=== PATIENT | male | born 1935 | race Hispanic/Latino ===

== ENCOUNTER → 2017-12-17 | Outpatient (CLI) | payer OTHER | END | disposition home or self-care (01) | LOC: OIH 10:20 | PROVIDERS: ATTEND Internal Medicine Cardiovascular Disease | DX: G31.9 Degenerative disease of nervous system, unspecified (principal); R27.0 Ataxia, unspecified | CPT/HCPCS: 70450 ==

== ENCOUNTER → 2021-01-27 | Outpatient (CLI) | payer OTHER | END | disposition home or self-care (01) | LOC: SHCH 11:03 | PROVIDERS: ATTEND Internal Medicine Cardiovascular Disease | DX: I08.0 Rheumatic disorders of both mitral and aortic valves (principal); R55 Syncope and collapse | CPT/HCPCS: 71046; 93306; 93356 ==

== ENCOUNTER 2022-11-24 10:52 | Emergency (ER) | payer OTHER ==
[~2022-11-24] VITALS: Ht 172.7 cm; Wt 73.0 kg
[2022-11-24 11:23] LABS: HEMATOCRIT 38.9 % (42-54); MEAN CORPUSCULAR HEMOGLOBIN 32.3 pg (27.0-33.0); MEAN CORPUSCULAR HGB CONC 33.7 g/dL (32.0-36.0); RED BLOOD CELL COUNT(AUTO) 4.05 MIL/uL (4.50-6.20); RED CELL DISTRIBUTION WIDTH 13.5 % (11.0-15.5); WHITE BLOOD COUNT (AUTO) 6.2 K/uL (4.8-10.8)
[2022-11-24 11:26] LABS: APPEARANCE,URINE CLEAR (CLEAR); BILIRUBIN,URINE NEGATIVE (NEGATIVE); COLOR,URINE YELLOW (YELLOW); GLUCOSE, URINE (UA) NEGATIVE (NEGATIVE); KETONES,URINE NEGATIVE (NEGATIVE); LEUKOCYTE ESTERASE ,URINE NEGATIVE Leu/uL (NEGATIVE); NITRATE,URINE NEGATIVE (NEGATIVE); OCCULT BLOOD,URINE NEGATIVE (NEGATIVE); PH,URINE 6.5 (5.0-8.0); PROTEIN,URINE NEGATIVE (NEGATIVE); UROBILINOGEN,URINE 3 mg/dL (0.2-1.0)
[2022-11-24 11:32] LABS: CREATININE 1.2 mg/dL (0.5-1.5); POTASSIUM 4.1 mmol/L (3.5-5.1)
[2022-11-24 11:36] LABS: ALBUMIN 3.3 g/dL (3.5-5.0); TOTAL PROTEIN, SERUM 6.9 g/dL (6.0-8.3)
[2022-11-24 11:39] LABS: BACTERIA,URINE RARE /HPF (None Seen); SQUAMOUS EPITHELIAL CELL,UR RARE /HPF (0-2); WBC,URINE 0-1 /HPF (0-1)
[2022-11-24] MEDS ORDERED: TAMS-1 PO (11:46)
[2022-11-24] MEDS ORDERED: PANT40TA54 PO (11:46)
[2022-11-24] MEDS ORDERED: LOSA50TA64 PO (11:46)
[2022-11-24] MEDS ORDERED: LEVO50CA4 PO (11:46)
[2022-11-24] MEDS ORDERED: PRAV20TA4 PO (11:46)
[2022-11-24] MEDS ORDERED: PIND10TA2 PO (11:46)
[2022-11-24] MEDS ORDERED: MORPHINE 4 MG SYG IVP ONE (13:30)
[2022-11-24] MEDS ORDERED: IOHEXOL 350 MG/ML 100ML INFUS..BTL IV ONE (14:03)
[2022-11-24 17:20] VITALS: BP 139/70
[2022-11-24] MEDS ORDERED: ACET-2079 PO (17:30)
[2022-11-24] MEDS ORDERED: LACT10SO95 PO (17:30)
[2022-11-24] MEDS ORDERED: TETANUS/DIPHTHERIA TOXOID [ADULT] 0.5 ML VIAL IM ONE (17:30)
== END 2022-11-24 17:54 | disposition home or self-care (01) ==
LOC: EDH 10:52
DX: S22.089A Unspecified fracture of T11-T12 vertebra, initial encounter for closed fracture (principal); S00.83XA Contusion of other part of head, initial encounter; K59.00 Constipation, unspecified; E78.00 Pure hypercholesterolemia, unspecified; I10 Essential (primary) hypertension; Z79.899 Other long term (current) drug therapy; W11.XXXA Fall on and from ladder, initial encounter; Y93.89 Activity, other specified; Y92.89 Other specified places as the place of occurrence of the external cause; Y99.8 Other external cause status
CPT/HCPCS: 99285; 70450; 96374; 82550; 84484; 80053; 85027; 81001; 36415; 90714; 71260; 74177; 90471; 93005; J2270; Q9967; 96372

== ENCOUNTER 2023-03-23 06:52 | Day surgery (SDC) | payer OTHER ==
[2023-03-19 09:52] LABS: BASOPHILS # (AUTO) 0.02 K/uL (0.00-0.20); BASOPHILS % (AUTO) 0.3 % (0.0-5.0); EOSINOPHILS # (AUTO) 0.19 K/uL (0.00-0.70); EOSINOPHILS % (AUTO) 2.5 % (0.0-8.0); HEMATOCRIT 38.9 % (42-54); IMMATURE GRANULOCYTE ABSOLUTE 0.05 K/uL (0-1); LYMPHOCYTES # (AUTO) 2.2 K/uL (1.0-4.8); MEAN CORPUSCULAR HEMOGLOBIN 32.4 pg (27.0-33.0); MEAN CORPUSCULAR HGB CONC 32.4 g/dL (32.0-36.0); MONOCYTES # (AUTO) 0.6 K/uL (0.1-1.0); MONOCYTES % (AUTO) 7.5 % (3.0-13.0); NEUTROPHILS # (AUTO) 4.5 K/uL (1.8-7.7); PLATELET COUNT (AUTO) 194 K/uL (130-400); RED BLOOD CELL COUNT(AUTO) 3.89 MIL/uL (4.50-6.20); RED CELL DISTRIBUTION WIDTH 13.2 % (11.0-15.5); WHITE BLOOD COUNT (AUTO) 7.5 K/uL (4.8-10.8)
[2023-03-19 10:10] LABS: CREATININE 1.3 mg/dL (0.5-1.5); POTASSIUM 4.5 mmol/L (3.5-5.1)
[2023-03-19 10:17] VITALS: BP 160/76; PULSE 53; RESP 19
[2023-03-23] VITALS (16 sets, daily range): BP systolic 113–145; BP diastolic 62–75; PULSE 54–60; RESP 12–21
[~2023-03-23] VITALS: Ht 170.2 cm; Wt 71.2 kg
[~2023-03-23 06:52] MED LIST: LEVO50CA4 PO; LOSA50TA64 PO; MICO14CR6 TP; PANT40TA54 PO; PIND5 PO; PRAV20TA4 PO; PRED20TA3 PO; TAMS-1 PO; TYLENOL PO; VITAMIN B12 PO
[2023-03-23] MEDS ORDERED: LACTATED RINGERS 1000ML 1,000 ML IV ONE (07:22)
[2023-03-23] MEDS ORDERED: ROCURONIUM 10MG/1ML SYR 10 MG/ML ML ONE ×2 (07:30→09:08)
[2023-03-23] MEDS ORDERED: MIDAZOLAM HCL 1 MG/ML 2ML VIAL ONE (07:30)
[2023-03-23] MEDS ORDERED: LIDOCAINE PF 100MG/5ML (2%) SYRINGE 5ML ONE (07:30)
[2023-03-23] MEDS ORDERED: PROPOFOL 10 MG/ML 20ML VIAL IV ONE (07:30)
[2023-03-23] MEDS ORDERED: FENTANYL CITRATE PF 50 MCG/1 ML 2ML VIAL ONE (07:31)
[2023-03-23] MEDS ORDERED: ONDANSETRON 4MG INJ ONE (07:35)
[2023-03-23] MEDS ORDERED: ROPIVACAINE 0.5% 5MG/ML 30ML IJ ONE (07:35)
[2023-03-23] MEDS ORDERED: NEOSTIGMINE 5MG/5ML SYR IV ONE (07:35)
[2023-03-23] MEDS ORDERED: GLYCOPYRROLATE 1 MG/5 ML SYRINGE ONE (07:35)
[2023-03-23] MEDS ORDERED: BUPIVACAINE/PF 0.5% 30ML VIAL ONE (07:37)
[2023-03-23] MEDS ORDERED: PHENYLEPHRINE HCL 10 MG/ML 1ML VIAL IV ONE (07:37)
[2023-03-23] MEDS ORDERED: INDOCYANINE GREEN 25 MG VIAL IJ ONE (07:46)
[2023-03-23] MEDS ORDERED: CEFAZOLIN SODIUM 2 GM VIAL ONE (08:14)
[2023-03-23] MEDS ORDERED: EPHEDRINE SULFATE 50 MG/ML AMPULE ONE (08:41)
== END 2023-03-23 12:15 | disposition home or self-care (01) ==
LOC: DAH 06:52
PROVIDERS: ATTEND Student in an Organized Health Care Education/Training Program
DX: K40.90 Unilateral inguinal hernia, without obstruction or gangrene, not specified as recurrent (principal); Z20.822 Contact with and (suspected) exposure to COVID-19; D17.6 Benign lipomatous neoplasm of spermatic cord; I11.0 Hypertensive heart disease with heart failure; I50.32 Chronic diastolic (congestive) heart failure; E11.9 Type 2 diabetes mellitus without complications; J44.9 Chronic obstructive pulmonary disease, unspecified; I25.2 Old myocardial infarction; E78.5 Hyperlipidemia, unspecified; Z79.899 Other long term (current) drug therapy; Z98.890 Other specified postprocedural states
CPT/HCPCS: 93005; 80048; 85025; 36415; 49650; 64486; A6260; A4663; J7030; A4344; J7120; J3010; J3490 ×3; J2710; J2001; J2250; J2704; J2405; J2795; J2371; J0690; C1769; C1781; A4930; A4215; A4223; A4222; A4221; G0168

== ENCOUNTER 2023-05-22 08:19 | Emergency (ER) | payer OTHER ==
[~2023-05-22] VITALS: Ht 172.7 cm; Wt 69.9 kg
[~2023-05-22 08:19] MED LIST changes: -MICO14CR6 TP
[2023-05-22] MEDS ORDERED: ONDANSETRON 4MG INJ IVP ONE (08:30)
[2023-05-22] MEDS ORDERED: MORPHINE 2 MG SYG IVP ONE (08:30)
[2023-05-22] MEDS ORDERED: LACTATED RINGERS 1000ML 1,000 ML IV ONE ×2 (08:30→10:00)
[2023-05-22] MEDS ORDERED: FAMOTIDINE 20MG VIAL IV ONE (08:30)
[2023-05-22 08:48] LABS: BASOPHILS # (AUTO) 0.03 K/uL (0.00-0.20); BASOPHILS % (AUTO) 0.5 % (0.0-5.0); EOSINOPHILS # (AUTO) 0.03 K/uL (0.00-0.70); EOSINOPHILS % (AUTO) 0.5 % (0.0-8.0); HEMATOCRIT 40.6 % (42-54); IMMATURE GRANULOCYTE ABSOLUTE 0.03 K/uL (0-1); LYMPHOCYTES # (AUTO) 1.3 K/uL (1.0-4.8); LYMPHOCYTES % (AUTO) 21.2 % (21.0-51.0); MEAN CORPUSCULAR HEMOGLOBIN 32.5 pg (27.0-33.0); MEAN CORPUSCULAR HGB CONC 33.7 g/dL (32.0-36.0); MEAN CORPUSCULAR VOLUME 96.4 fL (79-99); MONOCYTES # (AUTO) 0.5 K/uL (0.1-1.0); MONOCYTES % (AUTO) 7.7 % (3.0-13.0); NEUTROPHILS # (AUTO) 4.2 K/uL (1.8-7.7); NEUTROPHILS % (AUTO) 69.6 % (40.0-77.0); PLATELET COUNT (AUTO) 147 K/uL (130-400); RED BLOOD CELL COUNT(AUTO) 4.21 MIL/uL (4.50-6.20); RED CELL DISTRIBUTION WIDTH 14.4 % (11.0-15.5)
[2023-05-22 09:45] LABS: SARS-CoV-2, RNA, NAAT NEGATIVE SARS CoV-2 (NEGATIVE)
[2023-05-22 09:47] LABS: ALBUMIN 3.1 g/dL (3.5-5.0); BILIRUBIN,TOTAL 1.1 mg/dL (0.2-1.0); CREATININE 1.4 mg/dL (0.5-1.5); POTASSIUM 4.3 mmol/L (3.5-5.1); TOTAL PROTEIN, SERUM 6.6 g/dL (6.0-8.3)
[2023-05-22 09:50] LABS: INFLUENZA TYPE A Negative For Type A (NEGATIVE); INFLUENZA TYPE B Negative For Type B (NEGATIVE)
[2023-05-22] MEDS ORDERED: ONDA4TAB10 PO (11:53)
[2023-05-22 12:10] VITALS: BP 108/54; PULSE 76; RESP 16; O2SAT 96
== END 2023-05-22 12:26 | disposition home or self-care (01) ==
LOC: EDH 08:19
DX: A08.4 Viral intestinal infection, unspecified (principal); E86.0 Dehydration; I10 Essential (primary) hypertension; E78.00 Pure hypercholesterolemia, unspecified; Z20.822 Contact with and (suspected) exposure to COVID-19; Z79.899 Other long term (current) drug therapy; Z98.890 Other specified postprocedural states
CPT/HCPCS: 99285; 96374; 96361; 96375; 87635; 82550; 84484; 80053; 83690; 85025; 87040 ×2; 87804 ×2; 83605 ×2; 36415; 74021; 93005; C9803; J7120; J3490; J2270; J2405

== ENCOUNTER 2023-05-24 18:33 | Inpatient (IN) | payer OTHER ==
[~2023-05-24] VITALS: Ht 172.7 cm; Wt 69.5 kg
[~2023-05-24 18:33] MED LIST changes: +0.9%NACL 50ML IV SCH; +ONDA4TAB10 PO
[2023-05-24] MEDS ORDERED: 0.9%NACL 1000ML 1,000 ML IV ONE ×2 (19:30)
[2023-05-24] MEDS ORDERED: ACETAMINOPHEN 500 MG TABLET PO ONE (20:00)
[2023-05-24] MEDS ORDERED: 0.9%NACL 1000ML 2,052 ML IV ONE (20:00)
[2023-05-24 20:01] LABS: BASOPHILS # (AUTO) 0.09 K/uL (0.00-0.20); BASOPHILS % (AUTO) 1.8 % (0.0-5.0); EOSINOPHILS # (AUTO) 0.03 K/uL (0.00-0.70); EOSINOPHILS % (AUTO) 0.6 % (0.0-8.0); HEMATOCRIT 35.1 % (42-54); IMMATURE GRANULOCYTE ABSOLUTE 0.09 K/uL (0-1); LYMPHOCYTES # (AUTO) 0.8 K/uL (1.0-4.8); LYMPHOCYTES % (AUTO) 15.7 % (21.0-51.0); MEAN CORPUSCULAR HEMOGLOBIN 32.5 pg (27.0-33.0); MEAN CORPUSCULAR HGB CONC 34.2 g/dL (32.0-36.0); MEAN CORPUSCULAR VOLUME 95.1 fL (79-99); MONOCYTES # (AUTO) 0.7 K/uL (0.1-1.0); MONOCYTES % (AUTO) 13.8 % (3.0-13.0); NEUTROPHILS # (AUTO) 3.3 K/uL (1.8-7.7); NEUTROPHILS % (AUTO) 66.3 % (40.0-77.0); PLATELET COUNT (AUTO) 166 K/uL (130-400); RED BLOOD CELL COUNT(AUTO) 3.69 MIL/uL (4.50-6.20); RED CELL DISTRIBUTION WIDTH 14.6 % (11.0-15.5); WHITE BLOOD COUNT (AUTO) 4.9 K/uL (4.8-10.8)
[2023-05-24 20:03] VITALS: TEMP 100.4
[2023-05-24 20:22] LABS: APPEARANCE,URINE CLOUDY (CLEAR); BILIRUBIN,URINE NEGATIVE (NEGATIVE); COLOR,URINE DARK-YELLOW (YELLOW); GLUCOSE, URINE (UA) NEGATIVE (NEGATIVE); KETONES,URINE NEGATIVE (NEGATIVE); LEUKOCYTE ESTERASE ,URINE 500 Leu/uL (NEGATIVE); NITRATE,URINE NEGATIVE (NEGATIVE); PH,URINE 5.5 (5.0-8.0); PROTEIN,URINE 50 mg/dL (NEGATIVE); UROBILINOGEN,URINE 0.2 mg/dL (0.2-1.0)
[2023-05-24 20:23] LABS: ADD UA MICROSCOPIC YES
[2023-05-24 20:26] LABS: BACTERIA,URINE RARE /HPF (None Seen); MUCUS,URINE RARE LPF (None Seen); OTHER CASTS, URINE 2 /LPF (None Seen); SQUAMOUS EPITHELIAL CELL,UR MOD /HPF (0-2); UNCLASSIFIED CRYSTAL 2 /HPF (None Seen); WBC,URINE 51-100 /HPF (0-1)
[2023-05-24 20:35] LABS: SARS-CoV-2, RNA, NAAT NEGATIVE SARS CoV-2 (NEGATIVE)
[2023-05-24 20:37] LABS: POTASSIUM 4.7 mmol/L (3.5-5.1)
[2023-05-24 20:39] LABS: INFLUENZA TYPE A Negative For Type A (NEGATIVE); INFLUENZA TYPE B Negative For Type B (NEGATIVE)
[2023-05-24 20:41] LABS: ALBUMIN 2.7 g/dL (3.5-5.0); BILIRUBIN,TOTAL 0.9 mg/dL (0.2-1.0); TOTAL PROTEIN, SERUM 6.9 g/dL (6.0-8.3)
[2023-05-24] MEDS ORDERED: VANCOMYCIN 1G/250ML KIT 250 ML IV ONE (20:52)
[2023-05-24] MEDS ORDERED: ZOSYN 3.375GM+NS 50ML 50 ML IVPB ONE (20:52)
[2023-05-24] MEDS ORDERED: NOREPINEPHRIN 4MG/NS 250ML 250 ML IV ONE (20:52)
[2023-05-24] MEDS ORDERED: AMIODARONE 900MG VIAL 540 MG in DEXTROSE 5%-WATER 300 ML IV STA (20:52)
[2023-05-24] MEDS ORDERED: NOREPINEPHRIN 4MG/NS 250ML 250 ML IV SCH (21:00)
[2023-05-24] MEDS ORDERED: AMIODARONE 900MG VIAL 150 MG in DEXTROSE 5%-WATER 100 ML IV SCH (21:00)
[2023-05-24] MEDS ORDERED: VANCOMYCIN KIT 1 GM/250 ML IV.KIT IV ONE (21:00)
[2023-05-24] MEDS ORDERED: ZOSYN 3.375GM +NS 50ML IVPB ONE (21:00)
[2023-05-24] MEDS ORDERED: AMIODARONE 900MG VIAL 360 MG in DEXTROSE 5%-WATER 200 ML IV SCH (21:00)
[2023-05-24] MEDS ORDERED: ACETAMINOPHEN 325 MG TAB PO PRN (22:30)
[2023-05-24] MEDS ORDERED: HYDRALAZINE 20MG/ML VIAL IV PRN (22:30)
[2023-05-24] MEDS ORDERED: ONDANSETRON 4MG INJ IVP PRN (22:30)
[2023-05-24] MEDS ORDERED: VANCOMYCIN KIT 1 GM/250 ML IV.KIT IV SCH (22:30)
[2023-05-24] MEDS ORDERED: TEMAZEPAM 15 MG CAPSULE PO PRN (22:30)
[2023-05-24] MEDS: ZOSYN 3.375GM +NS 50ML IVPB SCH (22:30)
[2023-05-24] MEDS ORDERED: CLONIDINE HCL 0.1 MG TABLET PO PRN (22:30)
[2023-05-24] MEDS ORDERED: VANCOMYCIN PROTOCOL PER PHARMACY IV SCH (23:00)
[2023-05-24] MEDS: 0.9%NACL 1000ML 1,000 ML IV SCH (23:38)
[2023-05-25] VITALS (74 sets, daily range): BP systolic 88–143; BP diastolic 51–91; PULSE 66–131; RESP 14–81; O2SAT 96–98
[2023-05-25] MEDS ORDERED: 0.9%NACL 1000ML 1,000 ML IV SCH (01:00)
[2023-05-25 05:33] LABS: HEMATOCRIT 33.6 % (42-54); MEAN CORPUSCULAR HGB CONC 34.2 g/dL (32.0-36.0); MEAN CORPUSCULAR VOLUME 93.6 fL (79-99); RED BLOOD CELL COUNT(AUTO) 3.59 MIL/uL (4.50-6.20); RED CELL DISTRIBUTION WIDTH 14.2 % (11.0-15.5); WHITE BLOOD COUNT (AUTO) 4.9 K/uL (4.8-10.8)
[2023-05-25 05:57] LABS: CREATININE 1.5 mg/dL (0.5-1.5); MAGNESIUM 1.4 mg/dL (1.80-2.40); PHOSPHORUS 2.7 mg/dL (2.5-4.9); POTASSIUM 3.3 mmol/L (3.5-5.1)
[2023-05-25] MEDS: ZOSYN 3.375GM +NS 50ML IVPB SCH ×3 (06:22→22:41)
[2023-05-25] MEDS: INSULIN HUMULIN R 100 UNIT/ML 3ML SQ SCH ×4 (06:26→21:00)
[2023-05-25] MEDS ORDERED: POTASSIUM CHLORIDE 10MEQ/100ML IV ONE (06:30)
[2023-05-25] MEDS ORDERED: ENOXAPARIN SODIUM 30 MG/0.3 ML SQ SCH (09:00)
[2023-05-25] MEDS ORDERED: FAMOTIDINE 20MG TAB PO SCH (09:00)
[2023-05-25] MEDS ORDERED: VANCOMYCIN 750MG VIAL IVPB SCH (10:00)
[2023-05-25] MEDS: MAGNESIUM 2GM PREMIX 50ML 50 ML IV PRN (10:08)
[2023-05-25] MEDS ORDERED: PROMETHAZINE HCL 25 MG/ML 1ML AMPULE IM ONE (11:10)
[2023-05-25] MEDS ORDERED: PROMETHAZINE HCL 25 MG/ML 1ML AMPULE IM PRN (11:30)
[2023-05-25 11:46] LABS: HEMOGLOBIN A1C 6.8 % (4.0-6.0)
[2023-05-25] MEDS: FAMOTIDINE 20MG VIAL IV SCH ×2 (12:19→20:47)
[2023-05-25] MEDS: 0.9%NACL 1000ML 1,000 ML IV SCH (12:21)
[2023-05-25] MEDS ORDERED: LOPE2CAP PO (12:45)
[2023-05-25] MEDS ORDERED: LOSA50TA64 PO (12:45)
[2023-05-25] MEDS ORDERED: VITA1CAP85 PO (12:45)
[2023-05-25] MEDS ORDERED: ONDA4TAB10 PO (12:45)
[2023-05-25] MEDS ORDERED: FLUT15.845 NS (12:45)
[2023-05-25] MEDS ORDERED: LEVO50CA4 PO (12:45)
[2023-05-25] MEDS ORDERED: MICO1KIT TP (12:45)
[2023-05-25] MEDS ORDERED: METR-172 PO (12:45)
[2023-05-25] MEDS ORDERED: PIND10TA2 PO (12:45)
[2023-05-25] MEDS ORDERED: PIND5 PO (12:45)
[2023-05-25] MEDS ORDERED: TAMS-1 PO (12:45)
[2023-05-25] MEDS ORDERED: CHOL2000 PO (12:45)
[2023-05-25] MEDS ORDERED: DICL100G60 TP (12:45)
[2023-05-25] MEDS ORDERED: DIGOXIN 250 MCG/ML 2ML AMP IV SCH (16:00)
[2023-05-25] MEDS ORDERED: METOPROLOL TARTRATE 1 MG/ML 5ML VIAL IV PRN (16:00)
[2023-05-25] MEDS: DIGOXIN 250 MCG/ML 2ML AMP IV SCH (20:46)
[2023-05-25] MEDS: ENOXAPARIN SODIUM 80 MG/0.8 ML SQ SCH (20:47)
[2023-05-25] MEDS: METOPROLOL TARTRATE 25 MG TAB PO SCH (20:47)
[2023-05-26] VITALS (11 sets, daily range): BP systolic 94–138; BP diastolic 46–67; PULSE 56–86; RESP 18; O2SAT 96
[2023-05-26] MEDS: DIGOXIN 250 MCG/ML 2ML AMP IV SCH (01:48)
[2023-05-26] MEDS: 0.9%NACL 1000ML 1,000 ML IV SCH (01:50)
[2023-05-26 03:58] LABS: BASOPHILS # (AUTO) 0.05 K/uL (0.00-0.20); BASOPHILS % (AUTO) 0.7 % (0.0-5.0); EOSINOPHILS # (AUTO) 0.09 K/uL (0.00-0.70); EOSINOPHILS % (AUTO) 1.3 % (0.0-8.0); HEMATOCRIT 34.1 % (42-54); IMMATURE GRANULOCYTE ABSOLUTE 0.21 K/uL (0-1); LYMPHOCYTES # (AUTO) 1.6 K/uL (1.0-4.8); LYMPHOCYTES % (AUTO) 22.1 % (21.0-51.0); MEAN CORPUSCULAR HEMOGLOBIN 32.3 pg (27.0-33.0); MEAN CORPUSCULAR HGB CONC 33.4 g/dL (32.0-36.0); MEAN CORPUSCULAR VOLUME 96.6 fL (79-99); MONOCYTES # (AUTO) 0.8 K/uL (0.1-1.0); MONOCYTES % (AUTO) 11.3 % (3.0-13.0); NEUTROPHILS # (AUTO) 4.3 K/uL (1.8-7.7); NEUTROPHILS % (AUTO) 61.6 % (40.0-77.0); PLATELET COUNT (AUTO) 189 K/uL (130-400); RED BLOOD CELL COUNT(AUTO) 3.53 MIL/uL (4.50-6.20); RED CELL DISTRIBUTION WIDTH 14.5 % (11.0-15.5)
[2023-05-26 04:08] LABS: CREATININE 1.2 mg/dL (0.5-1.5); MAGNESIUM 1.8 mg/dL (1.80-2.40); POTASSIUM 3.9 mmol/L (3.5-5.1)
[2023-05-26 04:24] LABS: BAND NEUTROPHILS % (MANUAL) 20 % (0-2); LYMPHOCYTES % (MANUAL) 20 % (22-44); MAN.DIFF COMMENT-IMPRESSION MANUAL DIFFERENTIAL; MONOCYTES % (MANUAL) 12 % (2-9); PLATELET MORPHOLOGY COMMENT ADEQUATE; SEGMENTED NEUTROPHILS % 48 % (40-70); TOTAL CELLS COUNTED 100; WBC MORPHOLOGY CONSISTENT W/DIFF
[2023-05-26] MEDS: MAGNESIUM 2GM PREMIX 50ML 50 ML IV PRN (04:40)
[2023-05-26] MEDS: INSULIN HUMULIN R 100 UNIT/ML 3ML SQ SCH ×4 (05:58→21:00)
[2023-05-26] MEDS: LEVOTHYROXINE 50 MCG TABLET PO SCH (06:40)
[2023-05-26] MEDS: ZOSYN 3.375GM +NS 50ML IVPB SCH ×3 (06:40→21:29)
[2023-05-26] MEDS ORDERED: NON-FORMULARY MEDICATION 1 EACH (Levothyroxine Sodium (Levothyroxine) 50 MCG) PO SCH (09:00)
[2023-05-26] MEDS: TAMSULOSIN HCL 0.4 MG CAP.ER.24H PO SCH (09:20)
[2023-05-26] MEDS: METOPROLOL TARTRATE 25 MG TAB PO SCH ×2 (09:20→21:30)
[2023-05-26] MEDS: ENOXAPARIN SODIUM 80 MG/0.8 ML SQ SCH ×2 (11:01→21:30)
[2023-05-26] MEDS: LOPERAMIDE HCL 2 MG CAP PO PRN ×2 (12:05→12:42)
[2023-05-26] MEDS ORDERED: ATORVASTATIN 40 MG TABLET PO SCH (21:00)
[2023-05-26] MEDS: FAMOTIDINE 20MG VIAL IV SCH (21:29)
[2023-05-27] VITALS (8 sets, daily range): BP systolic 90–99; BP diastolic 42–60; PULSE 61–79; RESP 18–20; O2SAT 96–100
[2023-05-27 04:38] LABS: BASOPHILS # (AUTO) 0.07 K/uL (0.00-0.20); EOSINOPHILS # (AUTO) 0.21 K/uL (0.00-0.70); EOSINOPHILS % (AUTO) 2.9 % (0.0-8.0); IMMATURE GRANULOCYTE ABSOLUTE 0.36 K/uL (0-1); LYMPHOCYTES # (AUTO) 2.2 K/uL (1.0-4.8); LYMPHOCYTES % (AUTO) 29.7 % (21.0-51.0); MEAN CORPUSCULAR HEMOGLOBIN 31.8 pg (27.0-33.0); MEAN CORPUSCULAR HGB CONC 32.8 g/dL (32.0-36.0); MONOCYTES # (AUTO) 0.5 K/uL (0.1-1.0); MONOCYTES % (AUTO) 6.9 % (3.0-13.0); NEUTROPHILS % (AUTO) 54.6 % (40.0-77.0); PLATELET COUNT (AUTO) 185 K/uL (130-400); RED CELL DISTRIBUTION WIDTH 14.6 % (11.0-15.5); WHITE BLOOD COUNT (AUTO) 7.3 K/uL (4.8-10.8)
[2023-05-27 04:59] LABS: CREATININE 1.2 mg/dL (0.5-1.5); DIGOXIN 1.06 ng/mL (0.50-2.00); POTASSIUM 3.4 mmol/L (3.5-5.1)
[2023-05-27] MEDS ORDERED: KCL 20 MEQ ERTAB PO ONE (06:00)
[2023-05-27 06:22] LABS: BAND NEUTROPHILS % (MANUAL) 1 % (0-2); EOSINOPHILS % (MANUAL) 3 % (1-6); LYMPHOCYTES % (MANUAL) 21 % (22-44); MONOCYTES % (MANUAL) 5 % (2-9); MYELOCYTES % 1 % (0-0); REACTIVE LYMPHOCYTES 2 % (0-0); SEGMENTED NEUTROPHILS % 67 % (40-70); TOTAL CELLS COUNTED 100
[2023-05-27 06:23] LABS: MAN.DIFF COMMENT-IMPRESSION MANUAL DIFFERENTIAL; PLATELET MORPHOLOGY COMMENT ADEQUATE
[2023-05-27] MEDS: LEVOTHYROXINE 50 MCG TABLET PO SCH (06:49)
[2023-05-27] MEDS: INSULIN HUMULIN R 100 UNIT/ML 3ML SQ SCH ×4 (06:49→20:01)
[2023-05-27] MEDS: ZOSYN 3.375GM +NS 50ML IVPB SCH (06:49)
[2023-05-27] MEDS: METOPROLOL TARTRATE 25 MG TAB PO SCH ×2 (08:28→20:00)
[2023-05-27] MEDS: TAMSULOSIN HCL 0.4 MG CAP.ER.24H PO SCH (08:28)
[2023-05-27] MEDS: ENOXAPARIN SODIUM 80 MG/0.8 ML SQ SCH ×2 (08:30→20:02)
[2023-05-27] MEDS ORDERED: LEVOFLOXACIN 500 MG/D5W 100 ML 100 ML IV ONE (12:00)
[2023-05-27] MEDS: LOPERAMIDE HCL 2 MG CAP PO PRN ×3 (14:48→23:42)
[2023-05-27] MEDS ORDERED: POTASSIUM CHLORIDE 10% ELIXIR 20 MEQ/15 ML UDCUP PO PRN (16:30)
[2023-05-27] MEDS ORDERED: POTASSIUM CHLORIDE 20MEQ/100ML 100 ML IV PRN ×2 (16:30)
[2023-05-27] MEDS: KCL 20 MEQ ERTAB PO PRN (17:51)
[2023-05-27] MEDS: FAMOTIDINE 20MG VIAL IV SCH (20:00)
[2023-05-27] MEDS ORDERED: ENOXAPARIN SODIUM 80 MG/0.8 ML SQ SCH (21:00)
[2023-05-27] MEDS ORDERED: APIXABAN 5 MG TABLET PO SCH (21:00)
[2023-05-28] VITALS (7 sets, daily range): BP systolic 95–105; BP diastolic 42–62; PULSE 72–99; RESP 18–20; O2SAT 100
[2023-05-28 05:01] LABS: BASOPHILS # (AUTO) 0.05 K/uL (0.00-0.20); BASOPHILS % (AUTO) 0.7 % (0.0-5.0); EOSINOPHILS # (AUTO) 0.19 K/uL (0.00-0.70); EOSINOPHILS % (AUTO) 2.8 % (0.0-8.0); HEMATOCRIT 29.7 % (42-54); IMMATURE GRANULOCYTE ABSOLUTE 0.41 K/uL (0-1); LYMPHOCYTES # (AUTO) 1.7 K/uL (1.0-4.8); LYMPHOCYTES % (AUTO) 25.8 % (21.0-51.0); MEAN CORPUSCULAR HEMOGLOBIN 32.2 pg (27.0-33.0); MEAN CORPUSCULAR VOLUME 97.7 fL (79-99); MONOCYTES # (AUTO) 0.5 K/uL (0.1-1.0); MONOCYTES % (AUTO) 7.3 % (3.0-13.0); NEUTROPHILS # (AUTO) 3.8 K/uL (1.8-7.7); NEUTROPHILS % (AUTO) 57.3 % (40.0-77.0); PLATELET COUNT (AUTO) 213 K/uL (130-400); RED BLOOD CELL COUNT(AUTO) 3.04 MIL/uL (4.50-6.20); RED CELL DISTRIBUTION WIDTH 14.7 % (11.0-15.5); WHITE BLOOD COUNT (AUTO) 6.7 K/uL (4.8-10.8)
[2023-05-28 05:10] LABS: CREATININE 0.9 mg/dL (0.5-1.5); MAGNESIUM 1.8 mg/dL (1.80-2.40); POTASSIUM 3.7 mmol/L (3.5-5.1)
[2023-05-28] MEDS: LEVOTHYROXINE 50 MCG TABLET PO SCH (05:33)
[2023-05-28] MEDS: KCL 20 MEQ ERTAB PO PRN ×2 (05:33→17:05)
[2023-05-28] MEDS: MAGNESIUM 2GM PREMIX 50ML 50 ML IV PRN (05:34)
[2023-05-28 05:59] LABS: BAND NEUTROPHILS % (MANUAL) 1 % (0-2); EOSINOPHILS % (MANUAL) 1 % (1-6); LYMPHOCYTES % (MANUAL) 28 % (22-44); MAN.DIFF COMMENT-IMPRESSION MANUAL DIFFERENTIAL; MONOCYTES % (MANUAL) 2 % (2-9); PLATELET MORPHOLOGY COMMENT ADEQUATE; SEGMENTED NEUTROPHILS % 68 % (40-70); TOTAL CELLS COUNTED 100
[2023-05-28 06:01] LABS: WBC MORPHOLOGY NORMAL
[2023-05-28] MEDS: INSULIN HUMULIN R 100 UNIT/ML 3ML SQ SCH ×4 (06:38→20:06)
[2023-05-28] MEDS: FINASTERIDE 5 MG TABLET PO SCH (09:18)
[2023-05-28] MEDS: METOPROLOL TARTRATE 25 MG TAB PO SCH ×2 (09:18→20:31)
[2023-05-28] MEDS: ENOXAPARIN SODIUM 80 MG/0.8 ML SQ SCH (09:18)
[2023-05-28] MEDS: TAMSULOSIN HCL 0.4 MG CAP.ER.24H PO SCH (09:18)
[2023-05-28] MEDS: LEVOFLOXACIN 250 MG/D5W 50ML 50 ML IVPB SCH (11:32)
[2023-05-28] MEDS: GABAPENTIN 100 MG CAPSULE PO SCH ×2 (13:10→20:31)
[2023-05-28] MEDS: LIDOCAINE 5% TOPICAL PATCH TP SCH (13:10)
[2023-05-28] MEDS: APIXABAN 5 MG TABLET PO SCH (20:32)
[2023-05-29] VITALS (9 sets, daily range): BP systolic 93–119; BP diastolic 51–71; PULSE 58–100; RESP 16–20; O2SAT 98
[2023-05-29 03:45] LABS: MAGNESIUM 1.6 mg/dL (1.80-2.40)
[2023-05-29 03:55] LABS: BASOPHILS # (AUTO) 0.06 K/uL (0.00-0.20); BASOPHILS % (AUTO) 0.7 % (0.0-5.0); EOSINOPHILS # (AUTO) 0.21 K/uL (0.00-0.70); EOSINOPHILS % (AUTO) 2.3 % (0.0-8.0); HEMATOCRIT 30.7 % (42-54); IMMATURE GRANULOCYTE ABSOLUTE 0.69 K/uL (0-1); LYMPHOCYTES # (AUTO) 1.8 K/uL (1.0-4.8); LYMPHOCYTES % (AUTO) 19.3 % (21.0-51.0); MEAN CORPUSCULAR HEMOGLOBIN 32.2 pg (27.0-33.0); MEAN CORPUSCULAR HGB CONC 33.2 g/dL (32.0-36.0); MEAN CORPUSCULAR VOLUME 96.8 fL (79-99); MONOCYTES # (AUTO) 0.6 K/uL (0.1-1.0); MONOCYTES % (AUTO) 6.7 % (3.0-13.0); NEUTROPHILS # (AUTO) 5.8 K/uL (1.8-7.7); NEUTROPHILS % (AUTO) 63.4 % (40.0-77.0); PLATELET COUNT (AUTO) 248 K/uL (130-400); RED BLOOD CELL COUNT(AUTO) 3.17 MIL/uL (4.50-6.20); RED CELL DISTRIBUTION WIDTH 14.5 % (11.0-15.5); WHITE BLOOD COUNT (AUTO) 9.1 K/uL (4.8-10.8)
[2023-05-29] MEDS ORDERED: ACETAMINOPHEN WITH CODEINE 1 TAB TAB PO ONE ×3 (04:00→04:30)
[2023-05-29] MEDS: METRONIDAZOLE 500MG/100ML BAG 100 ML IVPB SCH ×2 (05:19→13:45)
[2023-05-29] MEDS: MAGNESIUM 2GM PREMIX 50ML 50 ML IV PRN (05:19)
[2023-05-29] MEDS: LEVOTHYROXINE 50 MCG TABLET PO SCH (05:23)
[2023-05-29] MEDS: INSULIN HUMULIN R 100 UNIT/ML 3ML SQ SCH ×4 (07:26→20:28)
[2023-05-29] MEDS: APIXABAN 5 MG TABLET PO SCH ×2 (08:52→20:27)
[2023-05-29] MEDS: GABAPENTIN 100 MG CAPSULE PO SCH ×3 (08:53→20:27)
[2023-05-29] MEDS: TAMSULOSIN HCL 0.4 MG CAP.ER.24H PO SCH (08:53)
[2023-05-29] MEDS: FINASTERIDE 5 MG TABLET PO SCH (08:53)
[2023-05-29] MEDS: METOPROLOL TARTRATE 25 MG TAB PO SCH ×2 (08:53→20:27)
[2023-05-29] MEDS: LIDOCAINE 5% TOPICAL PATCH TP SCH (11:27)
[2023-05-29] MEDS ORDERED: SODIUM CHLORIDE 1,000 MG TAB PO ONE (12:17)
[2023-05-29] MEDS: LEVOFLOXACIN 250 MG/D5W 50ML 50 ML IVPB SCH (12:34)
[2023-05-29] MEDS: MEROPENEM 1 GM in 0.9%NACL 100ML 100 ML IV SCH (19:23)
[2023-05-29] MEDS ORDERED: COMPOUND IV MISC 1 EACH IVSOLN MISC PRN (19:30)
[2023-05-29] MEDS: LOPERAMIDE HCL 2 MG CAP PO PRN (20:27)
[2023-05-29] MEDS: SODIUM CHLORIDE 1,000 MG TAB PO SCH (20:27)
[2023-05-30] VITALS: BP 119/60; PULSE 75; RESP 18
[2023-05-30 04:02] LABS: BASOPHILS # (AUTO) 0.05 K/uL (0.00-0.20); BASOPHILS % (AUTO) 0.6 % (0.0-5.0); EOSINOPHILS # (AUTO) 0.21 K/uL (0.00-0.70); EOSINOPHILS % (AUTO) 2.5 % (0.0-8.0); HEMATOCRIT 30.6 % (42-54); IMMATURE GRANULOCYTE ABSOLUTE 0.53 K/uL (0-1); LYMPHOCYTES # (AUTO) 1.4 K/uL (1.0-4.8); LYMPHOCYTES % (AUTO) 16.9 % (21.0-51.0); MEAN CORPUSCULAR HEMOGLOBIN 32.4 pg (27.0-33.0); MEAN CORPUSCULAR HGB CONC 33.7 g/dL (32.0-36.0); MEAN CORPUSCULAR VOLUME 96.2 fL (79-99); MONOCYTES # (AUTO) 0.7 K/uL (0.1-1.0); MONOCYTES % (AUTO) 7.8 % (3.0-13.0); NEUTROPHILS # (AUTO) 5.6 K/uL (1.8-7.7); NEUTROPHILS % (AUTO) 65.9 % (40.0-77.0); PLATELET COUNT (AUTO) 282 K/uL (130-400); RED BLOOD CELL COUNT(AUTO) 3.18 MIL/uL (4.50-6.20); RED CELL DISTRIBUTION WIDTH 14.8 % (11.0-15.5); WHITE BLOOD COUNT (AUTO) 8.5 K/uL (4.8-10.8)
[2023-05-30 04:24] LABS: MAGNESIUM 1.9 mg/dL (1.80-2.40); POTASSIUM 4.3 mmol/L (3.5-5.1); THYROID STIMULATING HORMONE 7.98 uIU/mL (0.36-3.74)
[2023-05-30 04:43] VITALS: BP 127/79; PULSE 71; RESP 18
[2023-05-30] MEDS: MEROPENEM 1 GM in 0.9%NACL 100ML 100 ML IV SCH (05:00)
[2023-05-30] MEDS: INSULIN HUMULIN R 100 UNIT/ML 3ML SQ SCH ×3 (05:27→16:06)
[2023-05-30] MEDS: LEVOTHYROXINE 50 MCG TABLET PO SCH (06:42)
[2023-05-30 07:50] VITALS: O2SAT 98
[2023-05-30 08:00] VITALS: BP 100/60; PULSE 99; RESP 16
[2023-05-30] MEDS: TAMSULOSIN HCL 0.4 MG CAP.ER.24H PO SCH (08:35)
[2023-05-30] MEDS: APIXABAN 5 MG TABLET PO SCH (08:35)
[2023-05-30] MEDS: GABAPENTIN 100 MG CAPSULE PO SCH ×2 (08:35→14:31)
[2023-05-30] MEDS: MAGNESIUM 2GM PREMIX 50ML 50 ML IV PRN (08:36)
[2023-05-30] MEDS: METOPROLOL TARTRATE 25 MG TAB PO SCH (08:36)
[2023-05-30] MEDS: SODIUM CHLORIDE 1,000 MG TAB PO SCH (08:36)
[2023-05-30] MEDS: FINASTERIDE 5 MG TABLET PO SCH (08:37)
[2023-05-30] MEDS: LIDOCAINE 5% TOPICAL PATCH TP SCH (08:37)
[2023-05-30 12:00] VITALS: BP 97/69; PULSE 93; RESP 16
[2023-05-30 15:53] VITALS: BP_SYST 100; BP_SYST 114; BP_DIAS 60; BP_DIAS 64; PULSE 81; PULSE 99; RESP 16
== END 2023-05-30 18:45 | DRG 871 ==
LOC: EDH 18:33 → EDHIP 22:28 → 2BH 05-25 01:00 → 2DH 05-25 17:45 → 4BH 05-29 14:10
PROVIDERS: ADMIT Internal Medicine Pulmonary Disease; ATTEND Internal Medicine Pulmonary Disease
DX: A41.9 Sepsis, unspecified organism (principal); N17.0 Acute kidney failure with tubular necrosis; R65.21 Severe sepsis with septic shock; N30.00 Acute cystitis without hematuria; E87.1 Hypo-osmolality and hyponatremia; E87.20 Acidosis, unspecified; N13.8 Other obstructive and reflux uropathy; I48.92 Unspecified atrial flutter; A08.4 Viral intestinal infection, unspecified; I48.91 Unspecified atrial fibrillation; E86.0 Dehydration; D64.9 Anemia, unspecified; N40.1 Benign prostatic hyperplasia with lower urinary tract symptoms; N20.0 Calculus of kidney; N18.9 Chronic kidney disease, unspecified; I12.9 Hypertensive chronic kidney disease with stage 1 through stage 4 chronic kidney disease, or unspecified chronic kidney disease; E03.9 Hypothyroidism, unspecified; I35.0 Nonrheumatic aortic (valve) stenosis; I71.43 Infrarenal abdominal aortic aneurysm, without rupture; E11.22 Type 2 diabetes mellitus with diabetic chronic kidney disease; E11.65 Type 2 diabetes mellitus with hyperglycemia; E78.00 Pure hypercholesterolemia, unspecified; G62.9 Polyneuropathy, unspecified; I25.10 Atherosclerotic heart disease of native coronary artery without angina pectoris; I95.1 Orthostatic hypotension; N28.1 Cyst of kidney, acquired; N32.0 Bladder-neck obstruction; Z79.01 Long term (current) use of anticoagulants; Z79.84 Long term (current) use of oral hypoglycemic drugs; Z79.899 Other long term (current) drug therapy
CPT/HCPCS: 36415; 71045; 74176; 78582; 80048; 80053; 80162; 81001; 82150; 82306; 82550; 82948; 83036; 83605; 83690; 83735; 83874; 83880; 84100; 84145; 84443; 84484; 85025; 85027; 85378; 87040; 87077; 87088; 87186; 87324; 87635; 87804; 93005; 93306; 93356; 93970; 96365; 96366; 99291; 99292; A9540; A9558; C9803; G0378; J0282; J1160; J1650; J1956; J2185; J2405; J2543; J2550; J3370; J3475; J3480; J3490; J7030; J7060

== ENCOUNTER → 2023-07-06 | Outpatient (CLI) | payer OTHER ==
[~2023-07-06] MED LIST changes: -0.9%NACL 50ML IV SCH; +CHOL2000 PO; +FLUT15.845 NS; -LOSA50TA64 PO; -ONDA4TAB10 PO; -PANT40TA54 PO; -PIND5 PO; -PRAV20TA4 PO; -PRED20TA3 PO; -VITAMIN B12 PO
== END | disposition home or self-care (01) ==
LOC: SHCH 08:16
PROVIDERS: ATTEND Internal Medicine Cardiovascular Disease
DX: I08.0 Rheumatic disorders of both mitral and aortic valves (principal); I11.9 Hypertensive heart disease without heart failure; E78.5 Hyperlipidemia, unspecified; E11.9 Type 2 diabetes mellitus without complications
CPT/HCPCS: 93306

== ENCOUNTER → 2024-11-04 | Outpatient (CLI) | payer OTHER ==
--- NOTE | 2024-11-05 08:29 | HMCSR ---
APPROVED REPORT EXAM: Two-dimensional and M-mode echocardiogram with Doppler and color Doppler. INDICATION ICD: I50.9 Heart failure, unspecified 2D Dimensions RVDd3.9 cmLVEF(%)41.7 (>50%)LVED Vol(simp.)111.0 mL IVSd1.4 (0.7-1.1cm)FS(%)20 %LVES Vol(simp.)63.0 mL LVDd4.6 (3.8-5.6cm)Ao Root(2D)3.8 (2.0-3.7cm)LVEF(%, simp.)43 % PWd1.3 (0.7-1.1cm)LVOT diam2.3 (1.8-2.4cm)LA ESV INDEX (BP)64.98 mL/m2 LVDs3.7 (2.5-4.0cm) Aortic Valve AoV Vmax3.3 m/[place] GR43.7 mmHgLVOT Vmax0.5 m/s AoV VTI0.8 mAo Mean GR28.9 mmHgLVOT VTI0.14 m YOSELYN (VMAX)0.7 cm2Al P1/2T833 msAVA (VTI) 0.7 cm2 Mitral Valve MV E Eskx168.5 cm/sDECEL Qtpk587 ms MV A Vmax50.0 cm/sP 1/2 T41 ms E/A ratio2.2MVA (PHT)5.4 cm2 MR Max PG125 mmHg TDI E/E' Oghmcx00.7E/E' Lateral9.6 Pulmonary Valve PV Vmax0.8 m/sPV VTI0.16 mPV Mean GR2 mmHg PV Peak GR2.9 mmHgPI End Kandace. Kamaljit 1.5 cm/s Tricuspid Valve TR Vmax3.1 m/sRAP (EST) 8 qjUqVXFS83.5 mmHg TR Peak GR37.5 mmHg Left Ventricle Left ventricular cavity size is normal. There is mild concentric left ventricular hypertrophy. LVEF i s 40-45%. Atrial fibrillation. Right Ventricle The right ventricle is normal size. The right ventricular systolic function is normal. Atria The left atrium is severely dilated. The right atrium is severely dilated. Aortic Valve The aortic valve is calcified and displays decreased opening. Trace to mild aortic regurgitation. AV Dimensionless Index is 0.17 Low gradient severe aortic stenosis. Calculated aortic valve area is 0.7 cm2 with maximum pressure gradient of 43.7 mmHg and mean pressure gradient of 28.9 mmHg. Mitral Valve Mitral valve leaflets are mildly calcified. Mitral annular calcification is moderate. Mitral regurgit ation is moderate. Mild mitral stenosisl Calculated mitral valve area is 1.8 cm2 with maximum pressur e gradient of 7.5 mmHg and mean pressure gradient of 3.2 mmHg. Tricuspid Valve The tricuspid valve leaflets appear normal. There is mild to moderate tricuspid regurgitation. Right ventricular systolic pressure is estimated at 40-50 mmHg. Pulmonic Valve Pulmonic valve is not well visualized. There is trace pulmonic valvular regurgitation. Great Vessels Aortic root is mildly dilated. IVC is not well visualized. Pericardium No pericardial effusion. Conclusion There is mild concentric left ventricular hypertrophy. LVEF is 40-45%. Atrial fibrillation. The aortic valve is calcified and displays decreased opening. Trace to mild aortic regurgitation. Low gradient severe aortic stenosis. Calculated aortic valve area is 0.7 cm2 with maximum pressure gr adient of 43.7 mmHg and mean pressure gradient of 28.9 mmHg. Mitral valve leaflets are mildly calcified. Mitral annular calcification is moderate. Mitral regurgitation is moderate. Mild mitral stenosisl Calculated mitral valve area is 1.8 cm2 with maximum pressure gradient of 7.5 m mHg and mean pressure gradient of 3.2 mmHg. There is mild to moderate tricuspid regurgitation. Right ventricular systolic pressure is estimated at 40-50 mmHg. There is trace pulmonic valvular regurgitation.
== END | disposition home or self-care (01) ==
LOC: SHCH 14:33
PROVIDERS: ATTEND Internal Medicine Cardiovascular Disease
DX: I08.3 Combined rheumatic disorders of mitral, aortic and tricuspid valves (principal); I50.9 Heart failure, unspecified
CPT/HCPCS: 93306